=== PATIENT | male | born 1950 | race Caucasian/White ===

== ENCOUNTER → 2018-03-18 | Day surgery (SDC) | payer OTHER ==
[~2018-03-18] MED LIST: Propofol 200 MG/20 ML SDV IV ONE
[2018-03-18] MEDS: Lactated Ringers 1,000 ML IV SCH (11:25)
[2018-03-18 12:28] VITALS: BP 130/80
--- NOTE | 2018-03-21 10:34 | OR ---
DATE OF OPERATION: 03/18/2018 PREOPERATIVE DIAGNOSIS: SCREENING COLONOSCOPY. POSTOPERATIVE DIAGNOSIS: SCREENING COLONOSCOPY. SURGEON: Cameron Josue MD PROCEDURE: FULL-LENGTH COLONOSCOPY WITH POLYP REMOVAL X1. ANESTHESIA: TAVERN KEEPER. COMPLICATIONS: None. SPECIMEN: Small sessile polyp, transverse colon. FINDINGS: 1. Full-length colonoscopy. 2. [id number] sigmoid diverticulosis. 3. Small sessile polyp, transverse colon. RECOMMENDATIONS: Follow up colonoscopy in 5 years, pending path report. INDICATIONS: The patient was in for routine physical. He is due for a routine colonoscopy. DESCRIPTION OF PROCEDURE: The patient was prepped and draped, placed in the left lateral decubitus position. A lubricated Olympus colonoscope was inserted with relative ease and advanced to the cecum. The patient has a very tortuous and has a lot of diverticula in the sigmoid region, which made traversing that tenuous, but once into the descending colon, the scope passed easily. It was difficult to get into the cecal pouch itself, but visualization across the polyp appeared normal. Upon withdrawal, the right transverse colon was benign other than a small sessile polyp in the mid transverse colon, removed in its entirety with forceps biopsy. The descending colon was essentially benign. The patient has [id number] diverticulosis in the sigmoid and rectosigmoid area. No acute inflammatory changes. There were no other polyps, masses, ulceration, or bleeding sites. No vascular abnormalities or signs of colitis. The rectal vault was benign. Retroflexion showed no perianal lesions. Air was suctioned, scope was removed without complication. FAITH/MARQUITA /[id number]
== END ==
LOC: CC.SDS 10:35
PROVIDERS: ATTEND Family Medicine
DX: Z12.11 Encounter for screening for malignant neoplasm of colon (principal); K63.5 Polyp of colon; K57.30 Diverticulosis of large intestine without perforation or abscess without bleeding; K56.2 Volvulus; I10 Essential (primary) hypertension; E78.5 Hyperlipidemia, unspecified; E03.9 Hypothyroidism, unspecified; Z79.82 Long term (current) use of aspirin; Z79.899 Other long term (current) drug therapy
CPT/HCPCS: J2704; J7120

== ENCOUNTER → 2023-10-29 | Day surgery (SDC) | payer OTHER ==
[~2023-10-29] MED LIST changes: +Ketamine 200 MG/20 ML MDV ONE; +Lactated Ringers 1,000 ML IV SCH; -Propofol 200 MG/20 ML SDV IV ONE; +Propofol 200 MG/20 ML SDV ONE; +fentaNYL 50 MCG/ML SDV ONE
[2023-10-29 12:20] VITALS: BP 131/54; PULSE 68
== END ==
LOC: CC.SDS 09:11
PROVIDERS: ATTEND Family Medicine
DX: D12.3 Benign neoplasm of transverse colon (principal); I10 Essential (primary) hypertension; E03.9 Hypothyroidism, unspecified; I47.10 Supraventricular tachycardia, unspecified; E78.5 Hyperlipidemia, unspecified; Z79.899 Other long term (current) drug therapy; Z79.82 Long term (current) use of aspirin; Z79.890 Hormone replacement therapy; Z90.49 Acquired absence of other specified parts of digestive tract
CPT/HCPCS: 45385; J7120; 00811; 99100; J2704; J3010; J3490